=== PATIENT | female | born 1935 | race Caucasian/White ===

== ENCOUNTER 2017-07-11 10:15 | Emergency (ER) | payer MEDICARE, OTHER ==
[~2017-07-11] VITALS: Ht 167.6 cm; Wt 90.7 kg
[~2017-07-11 10:15] MED LIST: ADVAIR; ALBU90OI6 INH; ALBUTEROL; ALEN70 PO; ALEVE220 MG PO; ALLERGRA; ASPI325 PO; ASPI81CH PO; ATOR10 PO; BENAML20/5 PO; BENZ100A PO; CARV6.25 PO; CITRACEL PO; CLOP75 PO; Caltrate-600 W1 EACH PO; FEXO180 PO; FEXPSEER PO; FLAX PO; FLUSAL1005 IH; FLUSAL1005 INH; FLUT.05NI; Fosamax; GLUCOSAMINE MS PO; HYDACE5 PO; HYDR1TAB94 PO; LEVSOD50 PO; LISI20 PO; LOTREL; MSM PO; MULVITMIND PO; PRED20 PO; PROBIOTIC1 EAC1 PO; Prednisone10 MG PO; Prednisone20 MG PO; TRAM50 PO; VIT PO; VITAMIN D-3 PO; Ventolin Soln3 ML INH; Zithromax250 MG PO; [UNRECOGNIZED DRUG - OTHER] PO
[2017-07-11 10:51] LABS: BASOPHILS ABSOLUTE AUTO 0.04 K/mm3 (0.00-0.23); BASOPHILS PERCENT AUTO 1 % (0-2); EOSINOPHILS PERCENT AUTO 5 % (0-6); Hematocrit 40.7 % (33.0-51.0); Hemoglobin 13.2 g/dL (11.5-16.0); IMMATURE GRAN ABSOLUTE AUTO 0.02 K/mm3 (0.00-0.10); IMMATURE GRAN PERCENT AUTO 0 % (0-1); LYMPHOCYTES ABSOLUTE AUTO 1.07 K/mm3 (0.84-5.20); LYMPHOCYTES PERCENT AUTO 18 % (21-46); MONOCYTES ABSOLUTE AUTO 0.53 K/mm3 (0.16-1.47); MONOCYTES PERCENT AUTO 9 % (4-13); Mean Corpuscular HGB 30.4 pg (26.0-34.0); Mean Corpuscular HGB Conc 32.4 g/dL (31.5-36.5); Mean Corpuscular Volume 94 fL (80-100); Mean Platelet Volume 9.9 fL (9.1-12.4); NEUTROPHILS ABSOLUTE AUTO 4.17 K/mm3 (1.96-9.15); NEUTROPHILS PERCENT AUTO 68 % (41-73); Platelet Count 159 K/mm3 (150-400); RDW Coefficient Variation 13.7 % (11.7-14.2); RDW Standard Deviation 46.9 fL (35.1-46.3); Red Blood Cell Count 4.34 M/mm3 (3.80-5.20); White Blood Cell Count 6.13 K/mm3 (4.00-11.30)
[2017-07-11 11:15] LABS: Alanine Aminotransfer (ALT/SGP 23 U/L (12-78); Albumin, Blood 3.4 g/dL (3.4-5.0); Albumin/Globulin Ratio 1.1 (0.8-1.8); Alk Phos 49 U/L (50-136); Anion Gap 5 mmol/L (6-16); Aspartate Aminotrans (AST/SGOT 13 U/L (12-37); Bilirubin, Total 0.5 mg/dL (0.1-1.0); Blood Urea Nitrogen 14 mg/dL (8-24); Bun/Creatinine Ratio 23.8 (12.0-20.0); CO2, Blood 28 mmol/L (21-32); Calcium, Blood 8.4 mg/dL (8.5-10.1); Chloride, Blood 109 mmol/L (98-108); Creatinine, Blood 0.59 mg/dL (0.40-1.00); Globulin, Blood 3.2 g/dL (2.2-4.0); Glomerular Filtration Rate >60 (60-); Glucose, Blood 96 mg/dL (70-99); Potassium, Blood 4.1 mmol/L (3.5-5.5); Sodium, Blood 142 mmol/L (136-145); Total Protein, Blood 6.6 g/dL (6.4-8.2); Troponin I <0.015 ng/mL (0.000-0.040)
[2017-07-11] MEDS ORDERED: ELIQUIS5 MG PO (12:13)
[2017-07-11 12:31] LABS: Free Thyroxine 1.09 ng/dL (0.70-1.60); Magnesium, Blood 2.3 mg/dL (1.6-2.4)
== END 2017-07-11 13:03 | disposition home or self-care (01) ==
LOC: ER 10:15
PROVIDERS: Internal Medicine
DX: I48.91 Unspecified atrial fibrillation (principal); R07.89 Other chest pain; Z91.013 Allergy to seafood; Z88.5 Allergy status to narcotic agent; Z79.899 Other long term (current) drug therapy; Z79.82 Long term (current) use of aspirin; Z79.52 Long term (current) use of systemic steroids; J45.909 Unspecified asthma, uncomplicated; E78.5 Hyperlipidemia, unspecified; I10 Essential (primary) hypertension; Z85.828 Personal history of other malignant neoplasm of skin; Z87.891 Personal history of nicotine dependence
CPT/HCPCS: 36415; 71046; 80053; 83735; 84439; 84443; 84484; 85025; 85730; 93005; 93010; 99283

== ENCOUNTER 2019-02-13 18:45 | Emergency (ER) | payer MEDICARE, OTHER ==
[~2019-02-13] VITALS: Ht 157.5 cm; Wt 99.8 kg
[~2019-02-13 18:45] MED LIST changes: +ELIQUIS5 MG PO
[2019-02-13 19:29] LABS: BASOPHILS ABSOLUTE AUTO 0.04 K/mm3 (0.00-0.23); BASOPHILS PERCENT AUTO 0 % (0-2); EOSINOPHILS ABSOLUTE AUTO 0.25 K/mm3 (0.00-0.68); EOSINOPHILS PERCENT AUTO 2 % (0-6); Hematocrit 35.9 % (33.0-51.0); Hemoglobin 11.6 g/dL (11.5-16.0); IMMATURE GRAN ABSOLUTE AUTO 0.05 K/mm3 (0.00-0.10); IMMATURE GRAN PERCENT AUTO 0 % (0-1); LYMPHOCYTES ABSOLUTE AUTO 0.78 K/mm3 (0.84-5.20); LYMPHOCYTES PERCENT AUTO 7 % (21-46); MONOCYTES ABSOLUTE AUTO 1.16 K/mm3 (0.16-1.47); MONOCYTES PERCENT AUTO 10 % (4-13); Mean Corpuscular HGB Conc 32.3 g/dL (31.5-36.5); Mean Corpuscular Volume 93 fL (80-100); Mean Platelet Volume 9.6 fL (9.1-12.4); NEUTROPHILS ABSOLUTE AUTO 9.14 K/mm3 (1.96-9.15); NEUTROPHILS PERCENT AUTO 80 % (41-73); Platelet Count 183 K/mm3 (150-400); RDW Coefficient Variation 15.8 % (11.7-14.2); RDW Standard Deviation 53.5 fL (35.1-46.3); Red Blood Cell Count 3.87 M/mm3 (3.80-5.20); White Blood Cell Count 11.42 K/mm3 (4.00-11.30)
[2019-02-13 19:52] LABS: Alanine Aminotransfer (ALT/SGP 16 U/L (12-78); Albumin, Blood 3.1 g/dL (3.4-5.0); Albumin/Globulin Ratio 0.9 (0.8-1.8); Alk Phos 66 U/L (50-136); Anion Gap 3 mmol/L (6-16); Aspartate Aminotrans (AST/SGOT 13 U/L (12-37); Bilirubin, Total 0.6 mg/dL (0.1-1.0); Blood Urea Nitrogen 14 mg/dL (8-24); Bun/Creatinine Ratio 21.6 (12.0-20.0); CO2, Blood 29 mmol/L (21-32); Calcium, Blood 8.6 mg/dL (8.5-10.1); Chloride, Blood 104 mmol/L (98-108); Creatinine, Blood 0.65 mg/dL (0.40-1.00); Globulin, Blood 3.6 g/dL (2.2-4.0); Glomerular Filtration Rate >60 (60-); Glucose, Blood 119 mg/dL (70-99); Sodium, Blood 136 mmol/L (136-145); Total Protein, Blood 6.7 g/dL (6.4-8.2); Troponin I <0.015 ng/mL (0.000-0.040)
[2019-02-13] MEDS ORDERED: Augmentin 875-1 EACH PO (20:28)
[2019-02-13] MEDS ORDERED: Prednisone20 MG PO (20:28)
== END 2019-02-13 20:50 | disposition home or self-care (01) ==
LOC: ER 18:45
PROVIDERS: Physician Assistant
DX: J40 Bronchitis, not specified as acute or chronic (principal); J45.909 Unspecified asthma, uncomplicated; I10 Essential (primary) hypertension; I48.91 Unspecified atrial fibrillation; E78.5 Hyperlipidemia, unspecified; Z87.891 Personal history of nicotine dependence; Z91.013 Allergy to seafood; Z88.5 Allergy status to narcotic agent; Z79.899 Other long term (current) drug therapy; Z79.82 Long term (current) use of aspirin; Z79.02 Long term (current) use of antithrombotics/antiplatelets; Z79.52 Long term (current) use of systemic steroids; Z79.01 Long term (current) use of anticoagulants
CPT/HCPCS: 36415; 71046; 80053; 83880; 84484; 85025; 93005; 93010; 94640; 96374; 99285-25; J2930

== ENCOUNTER 2019-04-19 18:38 | Emergency (ER) | payer MEDICARE, OTHER ==
[~2019-04-19] VITALS: Ht 157.5 cm; Wt 98.9 kg
[~2019-04-19 18:38] MED LIST changes: +Augmentin 875-1 EACH PO
[2019-04-19 19:13] LABS: BASOPHILS ABSOLUTE AUTO 0.03 K/mm3 (0.00-0.23); BASOPHILS PERCENT AUTO 0 % (0-2); EOSINOPHILS PERCENT AUTO 1 % (0-6); Hemoglobin 11.2 g/dL (11.5-16.0); IMMATURE GRAN ABSOLUTE AUTO 0.05 K/mm3 (0.00-0.10); IMMATURE GRAN PERCENT AUTO 0 % (0-1); LYMPHOCYTES ABSOLUTE AUTO 0.75 K/mm3 (0.84-5.20); LYMPHOCYTES PERCENT AUTO 6 % (21-46); MONOCYTES ABSOLUTE AUTO 1.05 K/mm3 (0.16-1.47); MONOCYTES PERCENT AUTO 9 % (4-13); Mean Corpuscular HGB 29.2 pg (26.0-34.0); Mean Corpuscular HGB Conc 31.1 g/dL (31.5-36.5); Mean Corpuscular Volume 94 fL (80-100); Mean Platelet Volume 10.3 fL (9.1-12.4); NEUTROPHILS ABSOLUTE AUTO 10.14 K/mm3 (1.96-9.15); NEUTROPHILS PERCENT AUTO 84 % (41-73); Platelet Count 161 K/mm3 (150-400); RDW Coefficient Variation 15.5 % (11.7-14.2); RDW Standard Deviation 53.1 fL (35.1-46.3); Red Blood Cell Count 3.83 M/mm3 (3.80-5.20); White Blood Cell Count 12.12 K/mm3 (4.00-11.30)
[2019-04-19] MEDS ORDERED: ALLEGRA ALLERG180 MG PO (19:16)
[2019-04-19] MEDS ORDERED: Aspir 8181 MG PO (19:16)
[2019-04-19] MEDS ORDERED: ALBU2.5V5 INH (19:16)
[2019-04-19] MEDS ORDERED: CARV25 PO (19:17)
[2019-04-19] MEDS ORDERED: ATOR20 PO (19:17)
[2019-04-19] MEDS ORDERED: ELIQUIS2.5 MG PO (19:18)
[2019-04-19] MEDS ORDERED: COMBIVENT RESPIM4 GM INH (19:18)
[2019-04-19] MEDS ORDERED: FURO40 PO (19:19)
[2019-04-19] MEDS ORDERED: FURO20 PO (19:19)
[2019-04-19] MEDS ORDERED: FLUT1DIS5 INH (19:19)
[2019-04-19] MEDS ORDERED: LISI20 PO (19:20)
[2019-04-19] MEDS ORDERED: METF500 PO (19:20)
[2019-04-19] MEDS ORDERED: LEVSOD25 PO (19:20)
[2019-04-19] MEDS ORDERED: NITR.4SL SL (19:21)
[2019-04-19] MEDS ORDERED: MONT10T PO (19:21)
[2019-04-19] MEDS ORDERED: POTCHL20ER PO (19:21)
[2019-04-19] MEDS ORDERED: ALBU90OI INH (19:22)
[2019-04-19 19:32] LABS: Alanine Aminotransfer (ALT/SGP 23 U/L (12-78); Albumin, Blood 3.3 g/dL (3.4-5.0); Alk Phos 54 U/L (50-136); Anion Gap 7 mmol/L (6-16); Aspartate Aminotrans (AST/SGOT 18 U/L (12-37); Bilirubin, Total 0.9 mg/dL (0.1-1.0); Blood Urea Nitrogen 17 mg/dL (8-24); Bun/Creatinine Ratio 25.1 (12.0-20.0); CO2, Blood 25 mmol/L (21-32); Calcium, Blood 8.8 mg/dL (8.5-10.1); Chloride, Blood 106 mmol/L (98-108); Creatinine, Blood 0.68 mg/dL (0.40-1.00); Globulin, Blood 3.4 g/dL (2.2-4.0); Glomerular Filtration Rate >60 (60-); Glucose, Blood 122 mg/dL (70-99); Potassium, Blood 3.8 mmol/L (3.5-5.5); Sodium, Blood 138 mmol/L (136-145); Total Protein, Blood 6.7 g/dL (6.4-8.2); Troponin I 0.028 ng/mL (0.000-0.040)
[2019-04-19] MEDS ORDERED: Ativan0.5 MG PO (20:18)
[2019-04-19] MEDS ORDERED: LEVFLO500 PO (20:18)
== END 2019-04-19 21:09 | disposition home or self-care (01) ==
LOC: ER 18:38
PROVIDERS: Emergency Medicine
DX: J18.9 Pneumonia, unspecified organism (principal); F41.9 Anxiety disorder, unspecified; J45.909 Unspecified asthma, uncomplicated; I10 Essential (primary) hypertension; E78.5 Hyperlipidemia, unspecified; I48.91 Unspecified atrial fibrillation; Z85.828 Personal history of other malignant neoplasm of skin; Z87.891 Personal history of nicotine dependence; Z91.013 Allergy to seafood; Z88.5 Allergy status to narcotic agent; Z79.899 Other long term (current) drug therapy; Z79.82 Long term (current) use of aspirin; Z79.01 Long term (current) use of anticoagulants; Z79.84 Long term (current) use of oral hypoglycemic drugs
CPT/HCPCS: 36415; 71046; 80053; 84484; 85025; 93005; 93010; 96374; 99284-25; J2060

== ENCOUNTER 2019-05-25 21:16 | Emergency (ER) | payer MEDICARE, OTHER ==
[~2019-05-25] VITALS: Ht 165.1 cm; Wt 94.8 kg
[~2019-05-25 21:16] MED LIST changes: +ALBU2.5V5 INH; +ALBU90OI INH; +ALLEGRA ALLERG180 MG PO; +ATOR20 PO; +Aspir 8181 MG PO; +Ativan0.5 MG PO; +CARV25 PO; +COMBIVENT RESPIM4 GM INH; +ELIQUIS2.5 MG PO; +FLUT1DIS5 INH; +FURO20 PO; +FURO40 PO; +LEVFLO500 PO; +LEVSOD25 PO; +METF500 PO; +MONT10T PO; +NITR.4SL SL; +POTCHL20ER PO
[2019-05-25 21:43] LABS: BASOPHILS ABSOLUTE AUTO 0.03 K/mm3 (0.00-0.23); BASOPHILS PERCENT AUTO 0 % (0-2); EOSINOPHILS ABSOLUTE AUTO 0.15 K/mm3 (0.00-0.68); EOSINOPHILS PERCENT AUTO 1 % (0-6); Hematocrit 31.6 % (33.0-51.0); IMMATURE GRAN ABSOLUTE AUTO 0.05 K/mm3 (0.00-0.10); IMMATURE GRAN PERCENT AUTO 0 % (0-1); LYMPHOCYTES ABSOLUTE AUTO 0.85 K/mm3 (0.84-5.20); LYMPHOCYTES PERCENT AUTO 7 % (21-46); MONOCYTES ABSOLUTE AUTO 1.25 K/mm3 (0.16-1.47); MONOCYTES PERCENT AUTO 10 % (4-13); Mean Corpuscular HGB 28.5 pg (26.0-34.0); Mean Corpuscular HGB Conc 31.6 g/dL (31.5-36.5); Mean Corpuscular Volume 90 fL (80-100); Mean Platelet Volume 9.4 fL (9.1-12.4); NEUTROPHILS ABSOLUTE AUTO 9.97 K/mm3 (1.96-9.15); NEUTROPHILS PERCENT AUTO 81 % (41-73); Platelet Count 262 K/mm3 (150-400); RDW Coefficient Variation 15.6 % (11.7-14.2); Red Blood Cell Count 3.51 M/mm3 (3.80-5.20)
[2019-05-25 22:07] LABS: Alanine Aminotransfer (ALT/SGP 16 U/L (12-78); Albumin, Blood 2.8 g/dL (3.4-5.0); Albumin/Globulin Ratio 0.7 (0.8-1.8); Alk Phos 67 U/L (50-136); Anion Gap 9 mmol/L (6-16); Aspartate Aminotrans (AST/SGOT 11 U/L (12-37); Bilirubin, Total 0.7 mg/dL (0.1-1.0); Blood Urea Nitrogen 25 mg/dL (8-24); CO2, Blood 27 mmol/L (21-32); Calcium, Blood 8.8 mg/dL (8.5-10.1); Chloride, Blood 103 mmol/L (98-108); Creatinine, Blood 0.86 mg/dL (0.40-1.00); Globulin, Blood 4.1 g/dL (2.2-4.0); Glomerular Filtration Rate >60 (60-); Glucose, Blood 109 mg/dL (70-99); Potassium, Blood 4.6 mmol/L (3.5-5.5); Sodium, Blood 139 mmol/L (136-145); Total Protein, Blood 6.9 g/dL (6.4-8.2); Troponin I <0.015 ng/mL (0.000-0.040)
[2019-05-25] MEDS ORDERED: Prednisone20 MG PO (23:50)
== END 2019-05-26 00:54 | disposition home or self-care (01) ==
LOC: ER 21:16
PROVIDERS: Emergency Medicine
DX: R06.02 Shortness of breath (principal); I10 Essential (primary) hypertension; J45.909 Unspecified asthma, uncomplicated; E78.5 Hyperlipidemia, unspecified; I48.91 Unspecified atrial fibrillation; Z91.018 Allergy to other foods; Z88.5 Allergy status to narcotic agent; Z79.899 Other long term (current) drug therapy; Z79.82 Long term (current) use of aspirin; Z79.51 Long term (current) use of inhaled steroids; Z79.01 Long term (current) use of anticoagulants; Z79.84 Long term (current) use of oral hypoglycemic drugs; Z87.891 Personal history of nicotine dependence
CPT/HCPCS: 71045; 80053; 83880; 84484; 85025; 94640; 96374; 99284-25; J2930

== ENCOUNTER 2019-06-05 12:58 | Emergency (ER) | payer MEDICARE, OTHER ==
[~2019-06-05] VITALS: Ht 157.5 cm; Wt 90.5 kg
[2019-06-05 14:05] LABS: Base Excess Venous 8.2 mmol/L; Bicarbonate Venous 30.8 mmol/L (24.0-30.0); PCO2 Venous 43.4 mmHg (38-42); PO2 Venous 53.4 mmHg (38-42); pH Blood Venous 7.47 (7.34-7.37)
[2019-06-05 14:15] LABS: BASOPHILS ABSOLUTE AUTO 0.01 K/mm3 (0.00-0.23); BASOPHILS PERCENT AUTO 0 % (0-2); EOSINOPHILS ABSOLUTE AUTO 0.28 K/mm3 (0.00-0.68); EOSINOPHILS PERCENT AUTO 3 % (0-6); Hematocrit 39.1 % (33.0-51.0); Hemoglobin 12.3 g/dL (11.5-16.0); IMMATURE GRAN ABSOLUTE AUTO 0.05 K/mm3 (0.00-0.10); IMMATURE GRAN PERCENT AUTO 1 % (0-1); LYMPHOCYTES ABSOLUTE AUTO 1.21 K/mm3 (0.84-5.20); LYMPHOCYTES PERCENT AUTO 13 % (21-46); MONOCYTES ABSOLUTE AUTO 0.65 K/mm3 (0.16-1.47); MONOCYTES PERCENT AUTO 7 % (4-13); Mean Corpuscular HGB 28.5 pg (26.0-34.0); Mean Corpuscular HGB Conc 31.5 g/dL (31.5-36.5); Mean Corpuscular Volume 91 fL (80-100); Mean Platelet Volume 9.9 fL (9.1-12.4); NEUTROPHILS ABSOLUTE AUTO 6.84 K/mm3 (1.96-9.15); NEUTROPHILS PERCENT AUTO 76 % (41-73); Platelet Count 203 K/mm3 (150-400); RDW Coefficient Variation 16.2 % (11.7-14.2); RDW Standard Deviation 52.8 fL (35.1-46.3); Red Blood Cell Count 4.31 M/mm3 (3.80-5.20); White Blood Cell Count 9.04 K/mm3 (4.00-11.30)
[2019-06-05 14:27] LABS: Source, Urine Voided
[2019-06-05 14:33] LABS: Appearance, Urine Hazy (Clear); Bilirubin, Urine Neg (Neg); Blood, Urine Neg (Neg); Color, Urine Yellow (P-Yellow); Glucose Qualitative, Urine Neg (Neg); Ketones, Urine Neg (Neg); Leukocyte Esterase, Urine 3+ (Neg); Nitrite, Urine Neg (Neg); Protein, Urine Neg (Neg); Urobilinogen, Urine NORM (Normal)
[2019-06-05 14:37] LABS: Alanine Aminotransfer (ALT/SGP 28 U/L (12-78); Albumin/Globulin Ratio 0.8 (0.8-1.8); Alk Phos 57 U/L (50-136); Anion Gap 6 mmol/L (6-16); Aspartate Aminotrans (AST/SGOT 18 U/L (12-37); Bilirubin, Total 0.6 mg/dL (0.1-1.0); Blood Urea Nitrogen 40 mg/dL (8-24); Bun/Creatinine Ratio 35.7 (12.0-20.0); CO2, Blood 31 mmol/L (21-32); Calcium, Blood 9.2 mg/dL (8.5-10.1); Chloride, Blood 103 mmol/L (98-108); Creatinine, Blood 1.12 mg/dL (0.40-1.00); Globulin, Blood 3.6 g/dL (2.2-4.0); Glomerular Filtration Rate 49 (60-); Glucose, Blood 84 mg/dL (70-99); Potassium, Blood 4.4 mmol/L (3.5-5.5); Sodium, Blood 140 mmol/L (136-145); Total Protein, Blood 6.6 g/dL (6.4-8.2); Troponin I <0.015 ng/mL (0.000-0.040)
[2019-06-05 15:00] LABS: Red Blood Cells, Urine 0-2 /hpf (0-2); White Blood Cells, Urine 25-50 /hpf (0-5)
[2019-06-05 15:01] LABS: Bacteria Many /hpf; Squamous Epithelial Cells Few /hpf (Few)
== END 2019-06-05 15:24 | disposition home or self-care (01) ==
LOC: ER 12:58
PROVIDERS: Emergency Medicine
DX: J40 Bronchitis, not specified as acute or chronic (principal); I48.91 Unspecified atrial fibrillation; Z88.5 Allergy status to narcotic agent; Z91.013 Allergy to seafood; Z79.82 Long term (current) use of aspirin; Z79.899 Other long term (current) drug therapy; Z79.84 Long term (current) use of oral hypoglycemic drugs; I10 Essential (primary) hypertension; M81.0 Age-related osteoporosis without current pathological fracture; Z87.891 Personal history of nicotine dependence; R07.9 Chest pain, unspecified
CPT/HCPCS: 71046; 80053; 81001; 82803; 83605; 83880; 84484; 85025; 87077; 87086; 87186; 93005; 93010; 99284-25

== ENCOUNTER 2019-10-31 14:35 | Inpatient (IN) | payer MEDICARE, OTHER ==
[~2019-10-31] VITALS: Ht 167.6 cm; Wt 97.0 kg
[2019-10-31 15:30] LABS: BASOPHILS ABSOLUTE AUTO 0.04 K/mm3 (0.00-0.23); BASOPHILS PERCENT AUTO 0 % (0-2); EOSINOPHILS ABSOLUTE AUTO 0.02 K/mm3 (0.00-0.68); EOSINOPHILS PERCENT AUTO 0 % (0-6); Hematocrit 36.5 % (33.0-51.0); Hemoglobin 11.9 g/dL (11.5-16.0); IMMATURE GRAN ABSOLUTE AUTO 0.09 K/mm3 (0.00-0.10); IMMATURE GRAN PERCENT AUTO 1 % (0-1); LYMPHOCYTES ABSOLUTE AUTO 0.75 K/mm3 (0.84-5.20); LYMPHOCYTES PERCENT AUTO 4 % (21-46); MONOCYTES ABSOLUTE AUTO 1.31 K/mm3 (0.16-1.47); MONOCYTES PERCENT AUTO 8 % (4-13); Mean Corpuscular HGB 29.3 pg (26.0-34.0); Mean Corpuscular HGB Conc 32.6 g/dL (31.5-36.5); Mean Corpuscular Volume 90 fL (80-100); NEUTROPHILS ABSOLUTE AUTO 15.06 K/mm3 (1.96-9.15); NEUTROPHILS PERCENT AUTO 87 % (41-73); Platelet Count 142 K/mm3 (150-400); RDW Coefficient Variation 15.4 % (11.7-14.2); RDW Standard Deviation 50.6 fL (35.1-46.3); Red Blood Cell Count 4.06 M/mm3 (3.80-5.20); White Blood Cell Count 17.27 K/mm3 (4.00-11.30)
[2019-10-31 15:46] LABS: Alanine Aminotransfer (ALT/SGP 16 U/L (12-78); Albumin, Blood 3.2 g/dL (3.4-5.0); Albumin/Globulin Ratio 0.8 (0.8-1.8); Alk Phos 50 U/L (50-136); Anion Gap 11 mmol/L (6-16); Aspartate Aminotrans (AST/SGOT 17 U/L (12-37); Bilirubin, Total 1.2 mg/dL (0.1-1.0); Blood Urea Nitrogen 17 mg/dL (8-24); Bun/Creatinine Ratio 20.6 (12.0-20.0); CO2, Blood 22 mmol/L (21-32); Calcium, Blood 8.2 mg/dL (8.5-10.1); Chloride, Blood 105 mmol/L (98-108); Creatinine, Blood 0.83 mg/dL (0.40-1.00); Globulin, Blood 3.8 g/dL (2.2-4.0); Glomerular Filtration Rate >60 (60-); Glucose, Blood 116 mg/dL (70-99); Potassium, Blood 3.6 mmol/L (3.5-5.5); Sodium, Blood 138 mmol/L (136-145); Troponin I <0.015 ng/mL (0.000-0.040)
[2019-10-31 16:37] LABS: Source, Urine Clean Catch
[2019-10-31 17:06] LABS: Bilirubin, Urine Neg (Neg); Blood, Urine 5+ (Neg); Glucose Qualitative, Urine Neg (Neg); Ketones, Urine Neg (Neg); Leukocyte Esterase, Urine 2+ (Neg); Nitrite, Urine Neg (Neg); Protein, Urine 3+ (Neg); Urobilinogen, Urine NORM (Normal)
[2019-10-31 17:13] LABS: Appearance, Urine Hazy (Clear); Color, Urine Yellow (P-Yellow)
[2019-10-31 17:14] LABS: Red Blood Cells, Urine 50-100 /hpf (0-2)
[2019-10-31 17:15] LABS: Bacteria Many /hpf; Squamous Epithelial Cells Not Seen /hpf (Few); White Blood Cells, Urine 50-100 /hpf (0-5)
--- NOTE | 2019-11-01 03:10 | NUR ---
ASSUMED CARE OF PATIENT @ 8440 FROM ROBLES SHOOK.
--- NOTE | 2019-11-01 03:24 | NUR ---
REPORT GIVEN TO Peace POLLOCK RN
[2019-11-01 06:20] LABS: BASOPHILS ABSOLUTE AUTO 0.02 K/mm3 (0.00-0.23); BASOPHILS PERCENT AUTO 0 % (0-2); EOSINOPHILS ABSOLUTE AUTO 0.03 K/mm3 (0.00-0.68); EOSINOPHILS PERCENT AUTO 0 % (0-6); Hematocrit 33.6 % (33.0-51.0); Hemoglobin 10.8 g/dL (11.5-16.0); IMMATURE GRAN ABSOLUTE AUTO 0.06 K/mm3 (0.00-0.10); IMMATURE GRAN PERCENT AUTO 0 % (0-1); LYMPHOCYTES PERCENT AUTO 2 % (21-46); MONOCYTES ABSOLUTE AUTO 0.72 K/mm3 (0.16-1.47); MONOCYTES PERCENT AUTO 4 % (4-13); Mean Corpuscular HGB 29.6 pg (26.0-34.0); Mean Corpuscular HGB Conc 32.1 g/dL (31.5-36.5); Mean Corpuscular Volume 92 fL (80-100); Mean Platelet Volume 9.8 fL (9.1-12.4); NEUTROPHILS ABSOLUTE AUTO 16.49 K/mm3 (1.96-9.15); NEUTROPHILS PERCENT AUTO 94 % (41-73); Platelet Count 119 K/mm3 (150-400); RDW Coefficient Variation 15.5 % (11.7-14.2); RDW Standard Deviation 51.8 fL (35.1-46.3); Red Blood Cell Count 3.65 M/mm3 (3.80-5.20); White Blood Cell Count 17.62 K/mm3 (4.00-11.30)
[2019-11-01 06:43] LABS: Alanine Aminotransfer (ALT/SGP 15 U/L (12-78); Albumin, Blood 2.8 g/dL (3.4-5.0); Albumin/Globulin Ratio 0.8 (0.8-1.8); Alk Phos 51 U/L (50-136); Anion Gap 11 mmol/L (6-16); Aspartate Aminotrans (AST/SGOT 19 U/L (12-37); Blood Urea Nitrogen 18 mg/dL (8-24); Bun/Creatinine Ratio 20.8 (12.0-20.0); CO2, Blood 23 mmol/L (21-32); Calcium, Blood 7.6 mg/dL (8.5-10.1); Chloride, Blood 105 mmol/L (98-108); Creatinine, Blood 0.87 mg/dL (0.40-1.00); Globulin, Blood 3.5 g/dL (2.2-4.0); Glomerular Filtration Rate >60 (60-); Glucose, Blood 124 mg/dL (70-99); Magnesium, Blood 2.2 mg/dL (1.6-2.4); Potassium, Blood 3.4 mmol/L (3.5-5.5); Sodium, Blood 139 mmol/L (136-145); Total Protein, Blood 6.3 g/dL (6.4-8.2)
[2019-11-01] MEDS ORDERED: CEFU500T30 PO (10:22)
--- NOTE | 2019-11-01 10:52 | NUR ---
1052 PT HAD IV REMOVED PRIOR TO DISCHARGE. NO SS OF INFECTION NOTED , PATIENT TOLERATED WELL. NURSE EDUCATED PT REGARDING NEW ABX. MEDS SENT TO [facility] PER PT. PT INSTRUCTED TO FOLLOW UP WITH PCP . PT DRESSING SELF AND TO BE TAKEN DOWN TO SON BY WC TO BE TAKEN HOME.
== END 2019-11-01 11:04 | disposition home or self-care (01) | DRG 292 ==
LOC: ER 14:35 → MEDS 19:46 → ENPENDDIS 11-01 09:00 → MEDS 11-01 11:04
PROVIDERS: Physician Assistant; ADMIT Internal Medicine
DX: I11.0 Hypertensive heart disease with heart failure (principal); J44.1 Chronic obstructive pulmonary disease with (acute) exacerbation; N39.0 Urinary tract infection, site not specified; Z79.82 Long term (current) use of aspirin; I50.33 Acute on chronic diastolic (congestive) heart failure; M81.0 Age-related osteoporosis without current pathological fracture; Z87.891 Personal history of nicotine dependence; E87.5 Hyperkalemia; I25.10 Atherosclerotic heart disease of native coronary artery without angina pectoris; E11.9 Type 2 diabetes mellitus without complications; I48.91 Unspecified atrial fibrillation; Z79.84 Long term (current) use of oral hypoglycemic drugs
CPT/HCPCS: 36415; 71045; 80053; 81001; 83036; 83605; 83735; 83880; 84443; 84484; 85025; 87077; 87086; 87186; 93005; 93010; 94640; 94760; 96365; 96366; 99285-25; A9270; A9270-GY; J0696; J1940; J2405; J7030; U0003

== ENCOUNTER 2020-08-30 09:36 | Inpatient (IN) | payer MEDICARE, OTHER ==
[~2020-08-30] VITALS: Ht 157.5 cm; Wt 96.4 kg
[~2020-08-30 09:36] MED LIST changes: +CEFU500T30 PO
[2020-08-30 10:17] LABS: BASOPHILS ABSOLUTE AUTO 0.03 K/mm3 (0.00-0.23); BASOPHILS PERCENT AUTO 0 % (0-2); EOSINOPHILS PERCENT AUTO 5 % (0-6); Hematocrit 35.7 % (33.0-51.0); Hemoglobin 11.7 g/dL (11.5-16.0); IMMATURE GRAN ABSOLUTE AUTO 0.02 K/mm3 (0.00-0.10); IMMATURE GRAN PERCENT AUTO 0 % (0-1); LYMPHOCYTES ABSOLUTE AUTO 0.94 K/mm3 (0.84-5.20); LYMPHOCYTES PERCENT AUTO 14 % (21-46); MONOCYTES ABSOLUTE AUTO 0.63 K/mm3 (0.16-1.47); MONOCYTES PERCENT AUTO 9 % (4-13); Mean Corpuscular HGB 31.3 pg (26.0-34.0); Mean Corpuscular HGB Conc 32.8 g/dL (31.5-36.5); Mean Corpuscular Volume 96 fL (80-100); Mean Platelet Volume 10.2 fL (9.1-12.4); NEUTROPHILS ABSOLUTE AUTO 4.78 K/mm3 (1.96-9.15); NEUTROPHILS PERCENT AUTO 71 % (41-73); Platelet Count 145 K/mm3 (150-400); RDW Coefficient Variation 14.6 % (11.7-14.2); RDW Standard Deviation 50.7 fL (35.1-46.3); Red Blood Cell Count 3.74 M/mm3 (3.80-5.20)
[2020-08-30] MEDS ORDERED: FUROSEMIDE40 MG PO (10:21)
[2020-08-30] MEDS ORDERED: POTCHL20ER PO (10:23)
[2020-08-30] MEDS ORDERED: FOSAMAX70 MG PO (10:24)
[2020-08-30 10:43] LABS: Alanine Aminotransfer (ALT/SGP 26 U/L (12-78); Albumin, Blood 3.3 g/dL (3.4-5.0); Albumin/Globulin Ratio 1.1 (0.8-1.8); Alk Phos 47 U/L (50-136); Anion Gap 3 mmol/L (6-16); Aspartate Aminotrans (AST/SGOT 21 U/L (12-37); Bilirubin, Total 0.8 mg/dL (0.1-1.0); Blood Urea Nitrogen 24 mg/dL (8-24); Bun/Creatinine Ratio 31.5 (12.0-20.0); CO2, Blood 31 mmol/L (21-32); Calcium, Blood 8.8 mg/dL (8.5-10.1); Chloride, Blood 108 mmol/L (98-108); Creatinine, Blood 0.76 mg/dL (0.40-1.00); Globulin, Blood 3.1 g/dL (2.2-4.0); Glomerular Filtration Rate >60 (60-); Glucose, Blood 91 mg/dL (70-99); Sodium, Blood 142 mmol/L (136-145); Total Protein, Blood 6.4 g/dL (6.4-8.2); Troponin I 0.226 ng/mL (0.000-0.040)
[2020-08-30] MEDS ORDERED: FLUTICASONE-SA1 EA10 INH (11:41)
[2020-08-30 12:16] LABS: International Normalized Ratio 1.02; Prothrombin Time Results 10.9 Sec (9.7-11.5)
[2020-08-30 15:03] LABS: Influenza A, PCR NEGATIVE (NEGATIVE); Influenza B, PCR NEGATIVE (NEGATIVE); Resp Syncytial Virus, PCR NEGATIVE (NEGATIVE); SARS-Cov-2 (COVID-19) PCR, MMC NEGATIVE (NEGATIVE)
--- NOTE | 2020-08-30 16:46 | NUR ---
ADMISSION PT ADMITTED AT 1550. PT & DAUGHTR ORIENTED TO ROOM. PT SITTING UP IN CHAIR. PT PLANNED TO HAVE CARDIAC CATH SOMETIME TOMORROW PER [facility]. DR. ARECHIGA ORDERED THAT PT CAN EAT A CARDIAC DIET UNTIL MIDNIGHT TONIGHT, SNACKS & WATER PROVIDED. CONFIRMED WITH DR. ARECHIGA AND PHARMACY THAT HEPARIN GTT WILL BE STARTED AT 2100 TONIGHT. PT SOB ON ADMIT, BREATHING TREATMENT GIVEN FROM RT. PT DENIES SOB NOW AND DENIES CP/PRESSURE. PT VISITING IN ROOM WITH DAUGHTER. VS REVIEWED. BSC CLOSE BY PER PT REQUEST. TRANSFERING WELL IND TO B[facility].
--- NOTE | 2020-08-30 18:21 | NUR ---
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 CARDIAC CATH PLANNED FOR TOMORROW AFTERNOON. NITRO PATCH ADDED TO MEDICATION REGIMEN. HEPARIN GTT TO BE STARTED AT 2100 TONIGHT. AND PT TO BE NPO AFTER BREAKFAST TOMORROW. PT CONTINUES TO DENY CP/PRESSURE. UP IN CHAIR. CALL LIGHT IN REACH.
[2020-08-31 02:04] LABS: BASOPHILS ABSOLUTE AUTO 0.03 K/mm3 (0.00-0.23); BASOPHILS PERCENT AUTO 0 % (0-2); EOSINOPHILS PERCENT AUTO 4 % (0-6); Hematocrit 33.7 % (33.0-51.0); IMMATURE GRAN ABSOLUTE AUTO 0.02 K/mm3 (0.00-0.10); IMMATURE GRAN PERCENT AUTO 0 % (0-1); LYMPHOCYTES ABSOLUTE AUTO 1.19 K/mm3 (0.84-5.20); LYMPHOCYTES PERCENT AUTO 14 % (21-46); MONOCYTES PERCENT AUTO 7 % (4-13); Mean Corpuscular HGB 30.9 pg (26.0-34.0); Mean Corpuscular HGB Conc 32.6 g/dL (31.5-36.5); Mean Corpuscular Volume 95 fL (80-100); Mean Platelet Volume 9.9 fL (9.1-12.4); NEUTROPHILS ABSOLUTE AUTO 6.42 K/mm3 (1.96-9.15); NEUTROPHILS PERCENT AUTO 75 % (41-73); Platelet Count 145 K/mm3 (150-400); RDW Coefficient Variation 14.5 % (11.7-14.2); RDW Standard Deviation 50.6 fL (35.1-46.3); Red Blood Cell Count 3.56 M/mm3 (3.80-5.20); White Blood Cell Count 8.56 K/mm3 (4.00-11.30)
[2020-08-31 02:23] LABS: Alanine Aminotransfer (ALT/SGP 23 U/L (12-78); Albumin, Blood 3.2 g/dL (3.4-5.0); Albumin/Globulin Ratio 1.1 (0.8-1.8); Alk Phos 43 U/L (50-136); Anion Gap 4 mmol/L (6-16); Aspartate Aminotrans (AST/SGOT 22 U/L (12-37); Blood Urea Nitrogen 23 mg/dL (8-24); Bun/Creatinine Ratio 30.1 (12.0-20.0); CO2, Blood 32 mmol/L (21-32); Calcium, Blood 8.3 mg/dL (8.5-10.1); Chloride, Blood 106 mmol/L (98-108); Creatinine, Blood 0.76 mg/dL (0.40-1.00); Globulin, Blood 2.9 g/dL (2.2-4.0); Glomerular Filtration Rate >60 (60-); Glucose, Blood 98 mg/dL (70-99); Potassium, Blood 3.7 mmol/L (3.5-5.5); Sodium, Blood 142 mmol/L (136-145); Total Protein, Blood 6.1 g/dL (6.4-8.2)
--- NOTE | 2020-08-31 04:25 | NUR ---
PT alert active denies acute cheat pain on tele monitor afibrate 60s to 80s. Nitro patch in place. Heparin gtt as per plan with pharmacy managing. PT says she usually woud be more active so she can sleep. DNI code status with CPR & interventions but not intubation. DTR in [place] & another on [facility]. Pleasant & able to commincate. HX of 2016 cardiac stents. On Eliquis took dose yesterday AM. COPD on room air, exsmoker.
--- NOTE | 2020-08-31 15:24 | NUR ---
ADMIT:08/30/20 DISCHARGE: DX: Acute Coronary Syndrome CC:[email or web address] JOSE CALL: RESIDENCE: Home CAREGIVER: Liss Edgar, Child, Sergo Meehan , Child, Caro Kendrick, Child, DX: HTN, CAD, QUINTERO, Osteoarthritis, see list DME: wrist/thumb splint CCM: Referral- 10/13/19 HOME HEALTH: none SUMMARY: Admit: 08/30/20 08/31/20- per chart review with Dr. Ricci, pt is having an active PR. She is scheduled to go to the livestock laborer today and when she is ready to d/c, she will need home health services with PT and OT. No pland to d/c pt today. -ruben
--- NOTE | 2020-08-31 18:19 | NUR ---
SHIFT SUMMARY PT HAS BEEN UP IN CHAIR MOST OF DAY. DAUGHTER IN ROOM THIS AFTERNOON. NPO FROM LUNCH. ANGIOGRAM NOW PLANNED FOR A.M. AT 0800. HAS HAD DISCOMFORT THIS AFTERNOON WITH LEGS AND SORE BACK. REPORTS FEELING FRUSTRATED WITH THE DELAY. CHEST PAIN HASN'T INCREASED SINCE THIS A.M. BUT DOES GET QUITE SOB WITH ACTIVITY.
--- NOTE | 2020-09-01 01:22 | NUR ---
CARDIAC: PATIENT IS REPORTING CHEST PAIN 4-8/10, VSS, PATIENT IS ANXIOUS. REFUSING MORPHINE AND ANY NITRO. DR MATHEW IS NOTIFIED AND ORDER FOR FENTANYL IV IS OBTAINED, DC MORPNINE.
--- NOTE | 2020-09-01 02:02 | NUR ---
CARDIAC: PATIENT HAD GOOD EFFECT FROM FENTANYL AND IS SLEPPING. SL NC IS ON FOR COMFORT. RESPIRATIONS ARE EASY AT 16. TELI IS READING A-FIB 79. BED ALARM IS ON FOR SAFETY.
--- NOTE | 2020-09-01 03:01 | NUR ---
Cardiac: Patient continues to have good effect from fentanyl, VSS. Patient is resting with eye's closed, reports no chest pain at this time.
[2020-09-01 03:04] LABS: BASOPHILS ABSOLUTE AUTO 0.03 K/mm3 (0.00-0.23); BASOPHILS PERCENT AUTO 0 % (0-2); EOSINOPHILS PERCENT AUTO 3 % (0-6); Hematocrit 33.1 % (33.0-51.0); IMMATURE GRAN ABSOLUTE AUTO 0.02 K/mm3 (0.00-0.10); IMMATURE GRAN PERCENT AUTO 0 % (0-1); LYMPHOCYTES ABSOLUTE AUTO 0.87 K/mm3 (0.84-5.20); LYMPHOCYTES PERCENT AUTO 10 % (21-46); MONOCYTES ABSOLUTE AUTO 0.69 K/mm3 (0.16-1.47); MONOCYTES PERCENT AUTO 8 % (4-13); Mean Corpuscular HGB Conc 33.2 g/dL (31.5-36.5); Mean Corpuscular Volume 93 fL (80-100); Mean Platelet Volume 9.8 fL (9.1-12.4); NEUTROPHILS ABSOLUTE AUTO 6.91 K/mm3 (1.96-9.15); NEUTROPHILS PERCENT AUTO 78 % (41-73); Platelet Count 131 K/mm3 (150-400); RDW Coefficient Variation 14.6 % (11.7-14.2); RDW Standard Deviation 50.4 fL (35.1-46.3); Red Blood Cell Count 3.55 M/mm3 (3.80-5.20); White Blood Cell Count 8.82 K/mm3 (4.00-11.30)
[2020-09-01 03:19] LABS: Anion Gap 6 mmol/L (6-16); Blood Urea Nitrogen 19 mg/dL (8-24); Bun/Creatinine Ratio 25.5 (12.0-20.0); CO2, Blood 30 mmol/L (21-32); Calcium, Blood 8.1 mg/dL (8.5-10.1); Chloride, Blood 105 mmol/L (98-108); Creatinine, Blood 0.74 mg/dL (0.40-1.00); Glomerular Filtration Rate >60 (60-); Glucose, Blood 104 mg/dL (70-99); Potassium, Blood 3.3 mmol/L (3.5-5.5); Sodium, Blood 141 mmol/L (136-145)
--- NOTE | 2020-09-01 05:52 | NUR ---
SHIFT SUMMARY: PATIENT IS SOB WITH ACTIVITY, REFUSES BED AREVALO FOR URINATION. STAND AND PIVOT TO THE BSC WITH AX1. PATIENT CONTINUES TO HAVE CHEST PAIN, NEVER FULLY GOES AWAY. PAIN GOES FROM 3-4/QP TO 7-8/10. PRN FENTANYL GIVEN X2 WITH GOOD EFFECT. BED ALARM IS ON FOR SAFETY. PATIENT HAS BEEN NPO
--- NOTE | 2020-09-01 08:00 | NUR ---
PT AWAKENED AFTER SHIFT CHANGE WITH SEVERE BACK PAIN THAT INCREASED HER FEELING OF SHORTNESS OF BREATH. ASSISTED TO RECLINER CHAIR AND PROVIDED MASSAGE TO SPOT ON HER R UPPER BACK. ABLE TO RELAX ENOUGH TO DOZE ON AND OFF TIL OPTICAL BRIGHTENER MAKER HELPER HERE TO PICK PT UP. TO [employer]ICAL BRIGHT[employer] MAKER HELPER VIA W/C.
--- NOTE | 2020-09-01 09:35 | NUR ---
REPORT CALLED TO NARCISO IN PCU FOR PT GOING TO PCU 5 FROM DRIVER LICENSE AGENT.
--- NOTE | 2020-09-01 10:40 | NUR ---
pt [facility] p[facility], recieved report from Christal ARBOLEDA, pt is drowsy, but a/ox3, pleasant and cooperative with care, follows commands well, she is complaining of being dry, gave some ice chips, lungs are dim t/o, resp even and unlabored, no cough noted, hrirr, tele in place running afib at controled rate per monitor, see strip, no edema noted, ppp+1, cap refill <3sec, vs stable, afebrile, iv site is clear and patent, recieved call from veterinary practice manager, will restart heparin 2hrs after tr band is off, btx4, abd flat soft nontender, voids without diff, skin c/w/d, has a mild rash under panis, tr band to right wrist, has a hard area above band that is outlined, will continue to monitor, site is clear at this time, maew, gets sob with activity, petty, call light in reach.
--- NOTE | 2020-09-01 13:37 | NUR ---
09/01/20- PT HAD CATH PROCEDURE TODAY AND IT WAS FOUND THAT SHE WILL NEED BYPASS SURGERY. PT IS GOING TO BE TRANSFER TO [facility]. PER DR. NARANJO, PT WAS WORRIED ABOUT NOT SEEING HER FAMILY PRIOR TO HER LEAVING. DR. NARANJO ASSISTED WITH GETTING FAMILY IN TO SEE PT PRIOR TO D/C.-TIN
--- NOTE | 2020-09-01 18:25 | NUR ---
pt has had a number of panic attacks today, gets very sob with rapid breathing, is able to be talked down, states she had a bad reaction to xanax, gave fentanyl for pain, she reports she feels miserable, is more relaxed after pain meds. pt needs to cobra tx to [place], waiting on bed, pt is upset she isn't going up today. no further changes this shift. call light in reach.
--- NOTE | 2020-09-01 23:06 | NUR ---
TRANSFER NOTE EMS HERE TO TRANSFER PT TO [facility]. PT AMBULATED FROM PCU BED TO EMS STRETCHER INDEPENDENTLY. PT A&OX4. SP02>92% ON 2L NC. PT SOB W/ EXERTION. NC PLACED IN PT'S MOUTH TO ASSIST IN BREATHING, PT WAS TACHYPENIC AND MOUTH BREATHING. SATS WERE >92%. TELEMETRY READS AFIB, 90'S. REPORT GIVEN TO ROBLES QUIROZ AT [facility].
== END 2020-09-01 22:55 | disposition short-term general hospital (02) | DRG 280 ==
LOC: ER 09:36 → MEDS 13:13 → PCU 13:13 → MEDS 15:51 → PCU 09-01 09:20
PROVIDERS: Emergency Medicine; Pharmacist; ADMIT Family Medicine
PROC: 4A023N7 Measurement of Cardiac Sampling and Pressure, Left Heart, Percutaneous Approach (ICD-10-PCS; principal; 2020-09-01)
PROC: B2111ZZ Fluoroscopy of Multiple Coronary Arteries using Low Osmolar Contrast (ICD-10-PCS; 2020-09-01)
DX: I21.4 Non-ST elevation (NSTEMI) myocardial infarction (principal); I50.33 Acute on chronic diastolic (congestive) heart failure; I11.0 Hypertensive heart disease with heart failure; I25.10 Atherosclerotic heart disease of native coronary artery without angina pectoris; Z20.822 Contact with and (suspected) exposure to COVID-19; E66.09 Other obesity due to excess calories; Z68.38 Body mass index [BMI] 38.0-38.9, adult; J44.9 Chronic obstructive pulmonary disease, unspecified; E11.9 Type 2 diabetes mellitus without complications; E03.9 Hypothyroidism, unspecified; I48.91 Unspecified atrial fibrillation; I25.2 Old myocardial infarction; Z79.82 Long term (current) use of aspirin; Z79.84 Long term (current) use of oral hypoglycemic drugs; Z79.899 Other long term (current) drug therapy; Z95.5 Presence of coronary angioplasty implant and graft; Z88.5 Allergy status to narcotic agent; Z91.013 Allergy to seafood; Z87.891 Personal history of nicotine dependence
CPT/HCPCS: 0241U; 36415; 71046; 76937; 80048; 80053; 82947; 83880; 84484; 85025; 85347; 85610; 85730; 93005; 93010; 93306; 93458; 94640; 94760; 99152; 99153; 99285-25; A9270; C1769; C1894; J1644; J1815; J1940; J2250; J2370; J3010; J7030; J7050; Q9967